=== PATIENT | female | born 1930 | race Caucasian/White ===

== ENCOUNTER 2017-05-10 11:14 | Inpatient (IN) ==
[2017-05-10] MEDS ORDERED: *HR* HYDROcodone/Acet 5/325 mg TABLET PO ONE (11:29)
--- NOTE | 2017-05-10 11:37 | Emergency Department Note ---
Disposition Clinical Impression: Pelvic fracture, Pelvic hematoma Fall Qualifiers: Encounter type: initial encounter Qualified Code(s): W19.XXXA - Unspecified fall, initial encounter Hip pain Qualifiers: Laterality: right Qualified Code(s): M25.551 - Pain in right hip Disposition: Admitted As Inpatient Condition: Fair Fall HPI - General Chief Complaint: ED Fall Stated Complaint: Hip Pain Time Seen by Provider: 05/10/17 11:18 Source: family, EMS Mode of arrival: EMS Limitations: altered mental status Nursing Notes Reviewed: Yes Vital Signs Reviewed: Yes - History of Present Illness HPI Narrative: 87-year-old female history of A. fib on anticoagulation, dementia since after a fall and right hip pain. Patient had a fall yesterday at the long term. Patient refused to ambulate today. Complaining initially of pain in the right hip. Patient is a poor historian with much of the history provided via the family at bedside. Patient denies any chest pain recurrence of breath. No abdominal pain. No nausea or vomiting. Patient did not have any pain medication prior to arrival. Denies any numbness or tingling of the lower extremities. Patient typically ablates with the assistance of a walker. - Related Data Home Medications Medication Instructions Recorded Confirmed Acetaminophen [Tylenol] 500 mg PO TID 01/02/16 05/10/17 Allopurinol [Zyloprim 300 MG] 150 mg PO DAILY 01/02/16 05/10/17 Atorvastatin Calcium [Lipitor] 20 mg PO DAILY 01/02/16 05/10/17 Cholecalciferol (Vitamin D3) 1,000 unit PO DAILY 01/02/16 05/10/17 [Vitamin D3] DULoxetine [Cymbalta] 60 mg PO DAILY 01/02/16 05/10/17 Eucerin Creme 1 appl TP BID 01/02/16 05/10/17 Loperamide [Imodium] 2 mg PO DAILY 01/02/16 05/10/17 Losartan Potassium [Cozaar] 100 mg PO DAILY 01/02/16 05/10/17 Metoprolol XL (24 HR) Succ [Toprol 100 mg PO DAILY 01/02/16 05/10/17 Xl] Nystatin Cream [Mycostatin Cream] 1 appl TP TID 01/02/16 05/10/17 Warfarin [Coumadin] 2 mg PO DAILY 01/02/16 05/10/17 hydroCHLOROthiazide 25 mg PO DAILY 01/02/16 05/10/17 [Hydrochlorothiazide] Ergocalciferol (VITAMIN D2) 50,000 unit PO QWEEK 05/10/17 05/10/17 [Vitamin D2] Insulin Glargine [Lantus] 40 unit SQ BID 05/10/17 05/10/17 Insulin LISPRO [HumaLOG] 10 - 15 units SQ TIDWM 05/10/17 05/10/17 Allergies Allergy/AdvReac Type Severity Reaction Status Date / Time Sulfa (Sulfonamide Allergy Rash Verified 01/02/16 11:45 Antibiotics) All systems ED: reviewed and negative except as stated. Constitutional: Reports: as per HPI. Denies: fever Eyes: Reports: as per HPI ENT ED: Reports: as per HPI Cardiovascular: Reports: as per HPI. Denies: chest pain Respiratory: Reports: as per HPI Gastrointestinal: Reports: as per HPI. 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 Absent: tenderness - Chest Chest inspection: Present: normal inspection, symmetric chest wall rise - Respiratory Respiratory exam: Present: other (Diffusely diminished throughout). Absent: respiratory distress - Cardiovascular Cardiovascular exam: Present: regular rate, irregular rhythm - Abdominal Exam Abdominal exam: Present: soft, Non-Tender. Absent: guarding, rebound - Expanded Lower Extremity Exam Hip/Pelvis exam: Present: tenderness (Right hip), external rotation (Right lower leg). Absent: swelling, abrasion Upper leg exam: Present: normal inspection. Absent: tenderness Knee exam: Present: normal inspection. Absent: tenderness Lower leg exam: Present: normal inspection. Absent: tenderness Ankle exam: Present: normal inspection Neurovascular/Tendon exam: Present: normal capillary refill - Neurological Exam Neurological exam: Present: alert, CN II-XII intact - Skin Skin exam: Present: warm, dry, intact, normal color Course Course Narrative: Patient seen and examined. Patient's record review does show that she is on Coumadin. Given the patient's symptoms the patient will get a head CT as well as a pelvis CT. Patient will be giving appropriate pain medication. Disposition pending. - Consultations Consultation #1: Spoke with orthopedics Dr. Campbell who will see the patient. Time: 13:59 Vital Signs Temperature 97.6 F 05/10/17 11:17 Pulse Rate 119 05/10/17 11:17 Respiratory Rate 19 05/10/17 11:17 Blood Pressure 117/82 05/10/17 11:17 O2 Sat by Pulse Oximetry 97 05/10/17 11:17 Temperature 97.6 F 05/10/17 11:17 Pulse Rate 109 05/10/17 14:44 Respiratory Rate 19 05/10/17 14:44 Blood Pressure 135/85 05/10/17 14:44 O2 Sat by Pulse Oximetry 95 05/10/17 14:44 Oxygen Delivery Oxygen Delivery Room Air Fall - [facility] Narrative Medical decision making narrative: 87-year-old female presents after mechanical fall from a nursing facility last night. Patient is on anticoagulated with Coumadin. Patient would not ambulate at the nursing facility today which prompted further evaluation. Patient does have dementia at her baseline per family at bedside. Patient is complaining of hip pain. Patient is neurovascularly intact. Patient had a CT of the head as well as CT the pelvis which showed left pelvic fracture. Patient was given intraoral pain medication. Patient is also on Coumadin for A. fib. Patient also has a small hematoma in the pelvis. Discussed the case with the on-call orthopedic doctor who will evaluate the patient. Patient will be admitted to hospitalist for further evaluation and monitoring. This information plan of care was discussed with the patient's vitals family at bedside. Patient received baseline admission labs including an INR which would be therapeutic on her Coumadin. Patient was not reversed given she has no sides extravasation. - Lab Data Lab results reviewed: Yes I reviewed the patient's lab results. Result diagrams: 05/10/17 13:31 05/10/17 13:31 Lab Results 05/10/17 05/10/17 05/10/17 Range/Units 13:31 13:31 13:31 WBC 12.0 H (4.3-11.1) K/mcL RBC 4.21 (3.82-4.97) M/mcL Hgb 11.6 (11.5-15.4) g/dL Hct 35.8 (35.3-44.9) % MCV 85.0 (83.0-100.0) fL MCH 27.6 L (28.0-33.3) pg MCHC 32.4 (31.6-35.5) g/dL RDW 15.1 H (11.5-14.5) % Plt Count 233 (140-400) K/mcL MPV 9.3 L (9.4-12.4) fL Immature Gran % 0.5 (0-4) % Seg Neutrophils % 74.0 % Lymphocytes % 15.2 % Monocytes % 9.1 % Eosinophils % 0.9 % Basophils % 0.3 % Neutrophils # 8.9 (1.6-8.9) K/mcL Lymphocytes # 1.8 (0.6-4.6) K/mcL Monocytes # 1.1 (0.0-1.3) K/mcL Eosinophils # 0.1 (0.0-0.6) K/mcL Basophils # 0.0 (0.0-0.2) K/mcL PT 24.3 H (9.4-12.1) Seconds INR 2.2 Sodium 136 (136-145) mEq/L Potassium 4.2 (3.5-5.1) mEq/L Chloride 105 (98-107) mEq/L Carbon Dioxide 26 (23-29) mEq/L BUN 39 H (8-23) mg/dL Creatinine 1.06 (0.60-1.20) mg/dL Est GFR ( Amer) 59 L (> 60) Est GFR (Non-Af Amer) 49 L (> 60) BUN/Creatinine Ratio 37 H (6-26) Glucose 232 H (70-105) mg/dL Calculated Osmolality 299 (280-300) Calcium 8.9 (8.6-10.3) mg/dL Total Bilirubin 0.7 (0.3-1.0) mg/dL AST 18 (13-39) Units/L ALT 17 (7-52) Units/L Alkaline Phosphatase 119 H (34-104) Units/L Serum Total Protein 6.3 L (6.4-8.9) g/dL Albumin 3.1 L (3.5-5.7) g/dL Globulin 3.2 (2.4-3.5) g/dL Albumin/Globulin Ratio 1.0 L (1.1-2.2) - Radiology Data Radiology results reviewed: Yes I reviewed the patient's radiology results. Head CT 05/10/17 11:29 IMPRESSION: No acute intracranial abnormality. Encephalomalacia in the inferior left frontal lobe, likely related to old infarction or old trauma, stable. Mild parenchymal volume loss. Mild to moderate chronic microvascular disease. Severe right and mild left mastoid effusions. D/ / Timmy Hartley MD / Timmy Hartley MD Interpreting Provider: Timmy Hartley MD Pelvis CT 05/10/17 11:29 IMPRESSION: Acute severely comminuted traumatic fracture of the left acetabulum, left iliac wing, left pubic rami as described above without evidence of left hip dislocation. Small left pelvic sidewall and extraperitoneal pelvic hematoma measuring up to 10 mm in thickness. Enlargement of the left iliopsoas muscle suggesting a left iliopsoas intramuscular hematoma. Incidentally noted multiple ventral fat containing abdominal wall hernias without acute hernia complication. D/ / 05/10/2017 12:39:12 Sal Veronica MD / renato Interpreting Provider: Sal Veronica MD - EKG Data EKG attestation: Yes I reviewed and interpreted this EKG. Rate: normal Rhythm: A.Fib Q waves: III, aVR, v1 Interpretation: no acute changes, nonspecific ST-T wave changes S.B.A.R. - S.B.A.R. Situation: Demographics Background: Presenting Complaint Assessment: Vital Signs Recommendation: Barrier(s) to disposition, Recommendation based on pending studies, treatments, or consults Mara Report Given to: Dr. Ozzie Terry Repor Time: 14:27 Attestation Statement - Attestation Attestation: I examined this patient and my medical decision-making was reviewed with the Resident Physician. I agree with the documented findings, disposition and treatment plan as described except to the extent set forth below. Patient presents to the ED with the chief left hip pain. Patient had a fall last night at her assisted living. She has complained of pain today and has been unable to walk. No reproducible tenderness over the left hip. Plan. CT pelvis shows acetabular and iliac wing fracture. She has an intramuscular hematoma as well. Patient will be admitted to hospitalist with orthopedic consultation. CT head was unremarkable. Hematoma is less than 1 cm. Do not believe she needs any reversal of her Coumadin at this time.
[2017-05-10 13:47] LABS: INR 2.2; Prothrombin Time 24.3 Seconds (9.4-12.1)
[2017-05-10 13:51] LABS: Basophils % 0.3 %; Eosinophils # 0.1 K/mcL (0.0-0.6); Eosinophils % 0.9 %; Hematocrit 35.8 % (35.3-44.9); Hemoglobin 11.6 g/dL (11.5-15.4); Immature Granulocytes % 0.5 % (0-4); Lymphocytes # 1.8 K/mcL (0.6-4.6); Lymphocytes % 15.2 %; Mean Corpuscular HGB Conc 32.4 g/dL (31.6-35.5); Mean Corpuscular Hemoglobin 27.6 pg (28.0-33.3); Mean Platelet Volume 9.3 fL (9.4-12.4); Monocytes # 1.1 K/mcL (0.0-1.3); Monocytes % 9.1 %; Neutrophils # 8.9 K/mcL (1.6-8.9); Platelet Count 233 K/mcL (140-400); Red Blood Count 4.21 M/mcL (3.82-4.97); Red Cell Distribution Width 15.1 % (11.5-14.5)
[2017-05-10 14:01] LABS: Albumin 3.1 g/dL (3.5-5.7); Bilirubin,Total 0.7 mg/dL (0.3-1.0); Calcium 8.9 mg/dL (8.6-10.3); Globulin 3.2 g/dL (2.4-3.5); Potassium 4.2 mEq/L (3.5-5.1); Total Protein 6.3 g/dL (6.4-8.9)
--- NOTE | 2017-05-10 15:48 | Internal Med History&Physical ---
Date of Encounter: 06/08/17 Time of Encounter: 15:48 Assessment and Plan (1) Hip fracture Status: Acute Left acetabular fracture with proximal and distal extension (ilium and inferior pubic ramus -Ortho was consulted, and considering nonoperative conservative approach including strict nonweightbearing for a period of time, cautious pain management. - We will continue warfarin at a low therapeutic level and do routine blood counts until her hemoglobin has stabilized. Qualifiers: Encounter type: initial encounter Fracture type: closed Laterality: unspecified laterality Qualified Code(s): S72.009A - Fracture of unspecified part of neck of unspecified femur, initial encounter for closed fracture (2) Diabetes mellitus Status: Acute We will obtain A1c and start accu-check with moderate insulin coverage. 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 Qualifiers: Hypertension type: essential hypertension Qualified Code(s): I10 - Essential (primary) hypertension (4) Hyperlipidemia Status: Acute We wiil cont statin, obtain FLP in am. Qualifiers: Hyperlipidemia type: unspecified Qualified Code(s): E78.5 - Hyperlipidemia , unspecified (5) Atrial fibrillation Status: Chronic We will continue warfarin at a low therapeutic level and do routine blood counts until her hemoglobin has stabilized. Qualifiers: Atrial fibrillation type: paroxysmal Qualified Code(s): I48.0 - Paroxysmal atrial fibrillation (6) CKD stage 3 due to type 2 diabetes mellitus Status: Chronic = Cr is at baseline, Renal dosing of meds as per current eGFR, avoid nephrotoxin. (7) Dementia Status: Acute Qualifiers: Dementia type: unspecified type Dementia behavioral disturbance: without behavioral disturbance Qualified Code(s): F03.90 - Unspecified dementia without behavioral disturbance (8) DVT prophylaxis Status: Acute The patient is on chronic anticoagulation with warfarin. Internal Medicine - H&P: HPI Chief complaint: hip pain Admitted From: Long-term Nursing Facility History of present illness: Ms. Berman is a 87 year old female history of A. fib on anticoagulation, dementia who is c/o after right hip pain after she sustained a fall yesterday at the assisted. Patient is neurovascularly intact. Patient had a CT of the head as well as CT the pelvis which showed left pelvic fracture as well as a small hematoma in the pelvis. Patient will be admittet for further evaluation and monitoring. Past Med Surg Social Fam HX - Past Medical History Medical history: atrial fibrillation, CVA, diabetes, hyperlipidemia, hypertension Psychiatric history: depression - Past Surgical History Surgical History: hysterectomy, other - Social History Smoking Status: Never smoker Smokeless Tobacco Status: No Alcohol use: none Drug use: none - Family History Mother Living Status: Hx Family Cardiac Disorders: Yes Internal Medicine - H&P: Meds Acetaminophen [Tylenol] 500 mg PO TID 01/02/16 [History] Allopurinol [Zyloprim 300 MG] 150 mg PO DAILY 01/02/16 [History] Atorvastatin Calcium [Lipitor] 20 mg PO DAILY 01/02/16 [History] Cholecalciferol (Vitamin D3) [Vitamin D3] 1,000 unit PO DAILY 01/02/16 [History] DULoxetine [Cymbalta] 60 mg PO DAILY 01/02/16 [History] Eucerin Creme 1 appl TP BID 01/02/16 [History] Loperamide [Imodium] 2 mg PO DAILY 01/02/16 [History] Losartan Potassium [Cozaar] 100 mg PO DAILY 01/02/16 [History] Metoprolol XL (24 HR) Succ [Toprol Xl] 100 mg PO DAILY 01/02/16 [History] Nystatin Cream [Mycostatin Cream] 1 appl TP TID 01/02/16 [History] Warfarin [Coumadin] 2 mg PO DAILY 01/02/16 [History] hydroCHLOROthiazide [Hydrochlorothiazide] 25 mg PO DAILY 01/02/16 [History] Ergocalciferol (VITAMIN D2) [Vitamin D2] 50,000 unit PO QWEEK 05/10/17 [History] Insulin Glargine [Lantus] 40 unit SQ BID 05/10/17 [History] Insulin LISPRO [HumaLOG] 10 - 15 units SQ TIDWM 05/10/17 [History] Acetaminophen [Tylenol] 650 mg PO Q6HR PRN tablet 05/11/17 [Rx] HYDROcodone/Acet 5/325 mg [[place] 5-325 mg] 1 tab PO Q8H PRN #15 tab 12/29/17 [Rx ] 3 Allergy/AdvReac Type Severity Reaction Status Date / Time Sulfa (Sulfonamide Allergy Rash Verified 01/02/16 11:45 Antibiotics) ROS unobtainable: due to mental status All Systems PM: A 10-system review of systems was performed and is negative for pertinent findings except as documented above in the HPI. - Constitutional Vitals: Temp Pulse Resp BP Pulse Ox 97.6 F 109 19 135/85 95 05/10/17 11:17 05/10/17 14:44 05/10/17 14:44 05/10/17 14:44 05/10/17 14:44 General appearance: Present: A&O X 0, pleasant - Head Head exam: Present: atraumatic, normocephalic - Neck Neck exam general surgery: Present: supple, trachea midline. Absent: lymphadenopathy - Respiratory Respiratory exam: Present: CTAB. Absent: accessory muscle use, rales, rhonchi, wheezes - Cardiovascular Cardiovascular exam: Present: RRR, +S1, +S2. Absent: diastolic murmur, gallop, rubs, systolic murmur - GI/Abdominal GI/Abdominal exam: Present: normal bowel sounds, soft, no peritoneal signs. Absent: distended, tenderness - Extremities Exam Extremities exam: Present: warm, radial pulses palpable and symmetrical. Absent : calf tenderness, cyanotic, pedal edema - Neurological Exam Neurological exam: Present: CN II-XII intact, oriented X3, no focal deficits. Absent: pronater drift, facial droop, speech deficit Internal Med - H&P Results - Labs CBC & Chem 7: 05/11/17 04:53 05/11/17 04:53
[2017-05-10] MEDS ORDERED: Ondansetron ODT 4 MG TAB.RAPDIS SL PRN (16:13)
[2017-05-10] MEDS ORDERED: Naloxone 0.4 MG/ML INJ IVP PRN (16:13)
[2017-05-10] MEDS ORDERED: *HR* Morphine 2 MG/ML SYRINGE IVP PRN (16:13)
[2017-05-10] MEDS ORDERED: Acetaminophen 325 MG TABLET PO PRN (16:13)
[2017-05-10] MEDS ORDERED: Insulin LISPRO 300 UNITS/3 ML VIAL SQ SCH (17:00)
--- NOTE | 2017-05-10 17:10 | Orthopedic Consult Note ---
Date of Encounter: 05/10/17 Time of Encounter: 16:58 History of Present Illness Chief complaint: Left hip pain HPI: Ms. Berman is a 87 year old female who sustained a fall at a assisted living facility earlier today. She was brought to the emergency room and [facility] where a CT scan of the pelvis was performed. This revealed multiple fractures. She is admitted for further evaluation and management. The patient's fractures are complicated by her age, anticoagulant use and her BMI of 41. For complete history and physical data please see the completed portion of the medical records. Pertinent orthopedic examination reveals no obvious deformity of the lower extremity. Complete exam for range of motion etc. was not performed due to presence of the fractures on CT scan. I reviewed the CT scan images at length These reveal multiple left hemipelvis fractures. This includes a comminuted though minimally displaced fracture of the acetabulum with extension distally into the inferior pubic ramus as well as proximally up into the left ilium. The ilium fracture does extend into the weighing as well as up into the region of the left ASIS. These fractures are associated with Intra-Op pelvic and extrapelvic hematomas. Lumbar spine shows no evidence of acute fractures though there is severe lumbar degenerative disc and degenerative joint disease. There is pre-existing arthritic changes in both hips and both SI joints. Impression: Left acetabular fracture with proximal and distal extension (ilium and inferior pubic ramus) Recommendation: I had a long discussion with the patient but mostly with the family including her daughter who has power of admitted attorneys. I showed them images of the fractures based upon the CT scan. This included discussion about the comminution with minimal displacement of the fractures as well as the existing fracture hematomas. Discussed the treatment options at length as well as the potential risks and complications of nonoperative versus operative repair. In light of her advanced age, anticoagulant use, overall medical condition as well as the minimal displacement I would recommend a nonoperative, conservative approach. This would entail strict nonweightbearing for a period of time. There is certainly concerns for her ability to understand and maintain a nonweightbearing status based upon her underlying dementia and overall deconditioned status. We discussed the potential risks of nonoperative management including skin breakdown, pulmonary conditions, deep vein thrombosis , etc. The family also understands that she runs a risk of significant bleeding from pelvic fractures and the anticoagulant use Also understand that constipation and obstipation R a very real concern in light of her relative inactivity, intrapelvic pain and probable narcotic use for pain management. Family is quite comfortable with the diagnosis and treatment plan and are very aware of the possible outcomes. We will treat her nonoperatively. We will use cautious pain management, continue warfarin at a low therapeutic level and do routine blood counts until her hemoglobin has stabilized. Thank you very much for allowing me to see care for Mrs. Berman. Sincerely, Wild Campbell,DO Past Med Surg Social Fam HX - Past Medical History Medical history: atrial fibrillation, CVA, diabetes, hyperlipidemia, hypertension Psychiatric history: depression - Past Surgical History Surgical History: hysterectomy, other - Social History Smoking Status: Never smoker Smokeless Tobacco Status: No Alcohol use: none Drug use: none Medications and Allergies Acetaminophen [Tylenol] 500 mg PO TID 01/02/16 [History] Allopurinol [Zyloprim 300 MG] 150 mg PO DAILY 01/02/16 [History] Atorvastatin Calcium [Lipitor] 20 mg PO DAILY 01/02/16 [History] Cholecalciferol (Vitamin D3) [Vitamin D3] 1,000 unit PO DAILY 01/02/16 [History] DULoxetine [Cymbalta] 60 mg PO DAILY 01/02/16 [History] Eucerin Creme 1 appl TP BID 01/02/16 [History] Loperamide [Imodium] 2 mg PO DAILY 01/02/16 [History] Losartan Potassium [Cozaar] 100 mg PO DAILY 01/02/16 [History] Metoprolol XL (24 HR) Succ [Toprol Xl] 100 mg PO DAILY 01/02/16 [History] Nystatin Cream [Mycostatin Cream] 1 appl TP TID 01/02/16 [History] Warfarin [Coumadin] 2 mg PO DAILY 01/02/16 [History] hydroCHLOROthiazide [Hydrochlorothiazide] 25 mg PO DAILY 01/02/16 [History] Ergocalciferol (VITAMIN D2) [Vitamin D2] 50,000 unit PO QWEEK 05/10/17 [History] Insulin Glargine [Lantus] 40 unit SQ BID 05/10/17 [History] Insulin LISPRO [HumaLOG] 10 - 15 units SQ TIDWM 05/10/17 [History] 3 Allergy/AdvReac Type Severity Reaction Status Date / Time Sulfa (Sulfonamide Allergy Rash Verified 01/02/16 11:45 Antibiotics) All Systems Reviewed: A 10-system review of systems was performed and is negative for pertinent findings except as documented above in the HPI. Physical Exam - Constitutional Vitals: Temp Pulse Resp BP Pulse Ox 97.9 F 100 16 143/85 98 05/10/17 16:31 05/10/17 16:31 05/10/17 16:31 05/10/17 16:31 05/10/17 16:31 Results - Labs Result Diagrams: 05/10/17 13:31 05/10/17 13:31 Labs: Abnormal lab results WBC 12.0 K/mcL (4.3-11.1) H 05/10/17 13:31 MCH 27.6 pg (28.0-33.3) L 05/10/17 13:31 RDW 15.1 % (11.5-14.5) H 05/10/17 13:31 MPV 9.3 fL (9.4-12.4) L 05/10/17 13:31 PT 24.3 Seconds (9.4-12.1) H 05/10/17 13:31 BUN 39 mg/dL (8-23) H 05/10/17 13:31 Est GFR ( Amer) 59 (> 60) L 05/10/17 13:31 Est GFR (Non-Af Amer) 49 (> 60) L 05/10/17 13:31 BUN/Creatinine Ratio 37 (6-26) H 05/10/17 13:31 Glucose 232 mg/dL (70-105) H 05/10/17 13:31 POC Glucose 164 (58-89) H 05/10/17 16:34 Alkaline Phosphatase 119 Units/L (34-104) H 05/10/17 13:31 Serum Total Protein 6.3 g/dL (6.4-8.9) L 05/10/17 13:31 Albumin 3.1 g/dL (3.5-5.7) L 05/10/17 13:31 Albumin/Globulin Ratio 1.0 (1.1-2.2) L 05/10/17 13:31 All other labs normal. - Diagnostic results Hip CT: image reviewed Consult Discharge Plan - Plan Referrals: NONE,PCP [Primary Care Provider] -
[2017-05-10] MEDS ORDERED: *HR* Warfarin 2 MG TABLET PO SCH (18:00)
[2017-05-10] MEDS: 0.9 % Sodium Chloride 1,000 ML IVC SCH (18:16)
[2017-05-10] MEDS: Insulin LISPRO 300 UNITS/3 ML VIAL SQ SCH (18:42)
[2017-05-10] MEDS: Eucerin Cream 57 GM TUBE TP SCH (20:38)
[2017-05-10] MEDS: Nystatin Cream 15 GM TUBE TP SCH (20:52)
[2017-05-10] MEDS: Insulin DETEMIR 100 UNIT/ML X5UNITS SQ SCH (20:58)
[2017-05-11 05:13] LABS: Basophils # 0.1 K/mcL (0.0-0.2); Basophils % 0.5 %; Eosinophils # 0.2 K/mcL (0.0-0.6); Hematocrit 36.8 % (35.3-44.9); Hemoglobin 11.9 g/dL (11.5-15.4); Immature Granulocytes % 0.4 % (0-4); Lymphocytes # 1.9 K/mcL (0.6-4.6); Lymphocytes % 16.1 %; Mean Corpuscular HGB Conc 32.3 g/dL (31.6-35.5); Mean Corpuscular Hemoglobin 27.7 pg (28.0-33.3); Mean Corpuscular Volume 85.6 fL (83.0-100.0); Mean Platelet Volume 9.1 fL (9.4-12.4); Monocytes # 1.1 K/mcL (0.0-1.3); Monocytes % 9.5 %; Neutrophils # 8.5 K/mcL (1.6-8.9); Platelet Count 217 K/mcL (140-400); Red Cell Distribution Width 15.4 % (11.5-14.5); Segmented Neutrophils % 71.5 %
[2017-05-11 05:20] LABS: Prothrombin Time 21.5 Seconds (9.4-12.1)
[2017-05-11 05:29] LABS: Alanine Aminotransferase 14 Units/L (7-52); Albumin 3.2 g/dL (3.5-5.7); Albumin/Globulin Ratio 0.9 (1.1-2.2); Alkaline Phosphatase 109 Units/L (34-104); Aspartate Amino Transferase 17 Units/L (13-39); BUN/Creatinine Ratio 34 (6-26); Bilirubin,Total 0.7 mg/dL (0.3-1.0); Blood Urea Nitrogen 33 mg/dL (8-23); Carbon Dioxide 26 mEq/L (23-29); Chloride 106 mEq/L (98-107); Chol/HDL Ratio 3.3 (0-4.9); Cholesterol 115 mg/dL (< 200); Globulin 3.6 g/dL (2.4-3.5); Glucose 55 mg/dL (70-105); HDL Cholesterol 35 mg/dL (40-59); LDL Cholesterol,Calculated 51 mg/dL (0-99); Magnesium 1.6 mg/dL (1.6-2.6); Osmolality,Calculated 293 (280-300); Phosphorous 2.7 mg/dL (2.7-4.5); Potassium 3.6 mEq/L (3.5-5.1); Sodium 139 mEq/L (136-145); Total Protein 6.8 g/dL (6.4-8.9); Triglycerides 144 mg/dL (< 150); eGFR For African Americans > 60 (> 60); eGFR For Non-African Americans 55 (> 60)
[2017-05-11] MEDS: Insulin LISPRO 300 UNITS/3 ML VIAL SQ SCH ×2 (07:54→11:39)
[2017-05-11] MEDS: Eucerin Cream 57 GM TUBE TP SCH (08:42)
[2017-05-11] MEDS: Insulin DETEMIR 100 UNIT/ML X5UNITS SQ SCH (08:42)
[2017-05-11] MEDS: Nystatin Cream 15 GM TUBE TP SCH (08:42)
[2017-05-11] MEDS ORDERED: *HR* Dextrose 50 % in Water (Syg) 50 ML SYRINGE IVP ONE (08:49)
[2017-05-11] MEDS ORDERED: Metoprolol XL (24 HR) Succ 50 MG TAB.ER.24H PO SCH (09:00)
[2017-05-11] MEDS ORDERED: hydroCHLOROthiazide 25 MG TABLET PO SCH (09:00)
[2017-05-11] MEDS ORDERED: Cholecalciferol (D-3) 1,000 UNIT TABLET PO SCH (09:00)
--- NOTE | 2017-05-11 09:15 | Electrocardiograph Report ---
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
[2017-05-11 11:32] VITALS: BP 146/92
[2017-05-11] MEDS: 0.9 % Sodium Chloride 1,000 ML IVC SCH (11:46)
--- NOTE | 2017-05-11 13:47 | Discharge Summary ---
Date of Encounter: 05/11/17 Time of Encounter: 13:44 - Discharge Diagnosis (1) Hip fracture Priority: Primary Status: Acute Qualifiers: Encounter type: initial encounter Fracture type: closed Laterality: unspecified laterality Qualified Code(s): S72.009A - Fracture of unspecified part of neck of unspecified femur, initial encounter for closed fracture (2) Atrial fibrillation Priority: Secondary Status: Chronic Qualifiers: Atrial fibrillation type: paroxysmal Qualified Code(s): I48.0 - Paroxysmal atrial fibrillation (3) CKD stage 3 due to type 2 diabetes mellitus Priority: Secondary Status: Chronic (4) Dementia Priority: Secondary Status: Acute Qualifiers: Dementia type: unspecified type Dementia behavioral disturbance: without behavioral disturbance Qualified Code(s): F03.90 - Unspecified dementia without behavioral disturbance (5) Diabetes mellitus Priority: Secondary Status: Acute Qualifiers: Diabetes mellitus type: type 2 Diabetes mellitus complication status: with hypoglycemia Diabetes mellitus complication detail: without coma 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 Qualified Code(s): E11.649 - Type 2 diabetes mellitus with hypoglycemia without coma; 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 (6) Hyperlipidemia Priority: Secondary Status: Acute Qualifiers: Hyperlipidemia type: unspecified Qualified Code(s): E78.5 - Hyperlipidemia , unspecified (7) Hypertension Priority: Secondary Status: Acute Qualifiers: Hypertension type: essential hypertension Qualified Code(s): I10 - Essential (primary) hypertension - Discharge Medications Prescriptions: HYDROcodone/Acet 5/325 mg [[place] 5-325 mg] 1 tab PO Q8H PRN #15 tab PRN Reason: Pain Home Medications: Acetaminophen [Tylenol] 500 mg PO TID 01/02/16 [History] Allopurinol [Zyloprim 300 MG] 150 mg PO DAILY 01/02/16 [History] Atorvastatin Calcium [Lipitor] 20 mg PO DAILY 01/02/16 [History] Cholecalciferol (Vitamin D3) [Vitamin D3] 1,000 unit PO DAILY 01/02/16 [History] DULoxetine [Cymbalta] 60 mg PO DAILY 01/02/16 [History] Eucerin Creme 1 appl TP BID 01/02/16 [History] Loperamide [Imodium] 2 mg PO DAILY 01/02/16 [History] Losartan Potassium [Cozaar] 100 mg PO DAILY 01/02/16 [History] Metoprolol XL (24 HR) Succ [Toprol Xl] 100 mg PO DAILY 01/02/16 [History] Nystatin Cream [Mycostatin Cream] 1 appl TP TID 01/02/16 [History] Warfarin [Coumadin] 2 mg PO DAILY 01/02/16 [History] hydroCHLOROthiazide [Hydrochlorothiazide] 25 mg PO DAILY 01/02/16 [History] Ergocalciferol (VITAMIN D2) [Vitamin D2] 50,000 unit PO QWEEK 05/10/17 [History] Insulin Glargine [Lantus] 40 unit SQ BID 05/10/17 [History] Insulin LISPRO [HumaLOG] 10 - 15 units SQ TIDWM 05/10/17 [History] Acetaminophen [Tylenol] 650 mg PO Q6HR PRN tablet 05/11/17 [Rx] HYDROcodone/Acet 5/325 mg [[place] 5-325 mg] 1 tab PO Q8H PRN #15 tab 05/11/17 [Rx ] Allergies/Adverse Reactions: 3 Allergy/AdvReac Type Severity Reaction Status Date / Time Sulfa (Sulfonamide Allergy Rash Verified 01/02/16 11:45 Antibiotics) Date of admission: 05/10/17 16:13 Primary care physician: PCP NONE Discharging clinician: Ashley Magallanes - Patient Status Disposition: Transfer SNF Condition: Fair Functional capacity at discharge: bed bound Overall status at discharge: patient is not back to baseline - Discharge Instructions Follow Up With: NONE,PCP [Primary Care Provider] - - Diet and Activity Activity: other (Bedrest) Diet: advance to your usual diet Hospital course: Ms. Berman is a 87 year old female history of A. fib on anticoagulation, dementia who is c/o after right hip pain after she sustained a fall yesterday at the longterm. Patient was neurovascularly intact. Patient had a CT of the head as well as CT the pelvis which showed left pelvic fracture as well as a small hematoma in the pelvis. She was admitted and Ortho was consulted. Based on advanced age, anticoagulation use, overall medical condition, and minimal displacement, it was recommended to have non-operative, conserrvative approach. Patient's family is in agreement to this. She was placed as strict nonweightbearing for a period of time prior to discharge. Patient was stable without any complaints of pain. [facility] - Time Spent with Patient Total time spent providing and/or coordinating discharge services: - Constitutional Vitals: Temp Pulse Resp BP Pulse Ox 98.7 F 101 20 146/92 95 05/11/17 11:25 05/11/17 11:25 05/11/17 11:25 05/11/17 11:25 05/11/17 11:25 Exam: General appearance: Present: A&O X 0, pleasant - Head Head exam: Present: atraumatic, normocephalic - Neck Neck exam general surgery: Present: supple, trachea midline. Absent: lymphadenopathy - Respiratory Respiratory exam: Present: CTAB. Absent: accessory muscle use, rales, rhonchi, wheezes - Cardiovascular Cardiovascular exam: Present: RRR, +S1, +S2. Absent: diastolic murmur, gallop, rubs, systolic murmur - GI/Abdominal GI/Abdominal exam: Present: normal bowel sounds, soft, no peritoneal signs. Absent: distended, tenderness - Extremities Exam Extremities exam: Present: warm, radial pulses palpable and symmetrical. Absent : calf tenderness, cyanotic, pedal edema - Neurological Exam Neurological exam: Present: CN II-XII intact, oriented X3, no focal deficits. Absent: pronater drift, facial droop, speech deficit - VTE Documentation of Mechanical Device: Graduated compression elastic hosiery
--- NOTE | 2017-05-11 14:08 | Physician Discharge Referral ---
ExtendedCare Referral Info Transfer To: [facility] Institutional Level of Care: Skilled - Diagnosis (1) Hip fracture Priority: Primary Status: Acute (2) Atrial fibrillation Priority: Secondary Status: Chronic (3) CKD stage 3 due to type 2 diabetes mellitus Priority: Secondary Status: Chronic (4) Dementia Priority: Secondary Status: Acute (5) Diabetes mellitus Priority: Secondary Status: Acute (6) Hyperlipidemia Priority: Secondary Status: Acute (7) Hypertension Priority: Secondary Status: Acute - Transfer Medications Prescriptions: HYDROcodone/Acet 5/325 mg [[place] 5-325 mg] 1 tab PO Q8H PRN #15 tab PRN Reason: Pain Home Medications: Acetaminophen [Tylenol] 500 mg PO TID 01/02/16 [History] Allopurinol [Zyloprim 300 MG] 150 mg PO DAILY 01/02/16 [History] Atorvastatin Calcium [Lipitor] 20 mg PO DAILY 01/02/16 [History] Cholecalciferol (Vitamin D3) [Vitamin D3] 1,000 unit PO DAILY 01/02/16 [History] DULoxetine [Cymbalta] 60 mg PO DAILY 01/02/16 [History] Eucerin Creme 1 appl TP BID 01/02/16 [History] Loperamide [Imodium] 2 mg PO DAILY 01/02/16 [History] Losartan Potassium [Cozaar] 100 mg PO DAILY 01/02/16 [History] Metoprolol XL (24 HR) Succ [Toprol Xl] 100 mg PO DAILY 01/02/16 [History] Nystatin Cream [Mycostatin Cream] 1 appl TP TID 01/02/16 [History] Warfarin [Coumadin] 2 mg PO DAILY 01/02/16 [History] hydroCHLOROthiazide [Hydrochlorothiazide] 25 mg PO DAILY 01/02/16 [History] Ergocalciferol (VITAMIN D2) [Vitamin D2] 50,000 unit PO QWEEK 05/10/17 [History] Insulin Glargine [Lantus] 40 unit SQ BID 05/10/17 [History] Insulin LISPRO [HumaLOG] 10 - 15 units SQ TIDWM 05/10/17 [History] Acetaminophen [Tylenol] 650 mg PO Q6HR PRN tablet 05/11/17 [Rx] HYDROcodone/Acet 5/325 mg [[place] 5-325 mg] 1 tab PO Q8H PRN #15 tab 05/11/17 [Rx ] Allergies/Adverse Reactions: 3 Allergy/AdvReac Type Severity Reaction Status Date / Time Sulfa (Sulfonamide Allergy Rash Verified 01/02/16 11:45 Antibiotics) - Respiratory Orders Smoking Cessation: Smoking cessation has been advised. For more information, call the [place] Tobacco Quit Line at 5-680-MPFY-NOW. - Ancillary Orders May use pressure relief devices daily prn, May consult with Dentist, Funeral Director/Embalmer, Cytology Technologist PRN - Mobility Orders Bedrest - Treatments Skin tear care topically daily PRN per policy, May check for fecal impaction rectally daily PRN, Fleet enema rectally every other day PRN cleansing purposes - Diet Orders No Added Salt (GILDA), No Concentrated Sweets, Pureed CERTIFICATION: I certify that the transfer of the above named patient to an Extended Care Facility is necessary for the continuing treatment of the diagnosis listed. The above information is true and accurate reflection of patient's current condition. Confidential - Redisclosure prohibited without a patient's written consent.
== END 2017-05-11 16:34 | DRG 536 ==
LOC: 3NENU 11:14 → EMEROO 11:14 → 3NENU 16:08
PROVIDERS: ADMIT Internal Medicine Nephrology; ATTEND Internal Medicine